=== PATIENT | male | born 1980 | race Caucasian/White ===

== ENCOUNTER 2024-04-17 06:55 | Day surgery (SDC) | payer BC ==
[2024-04-17] MEDS ORDERED: Midazolam 1 MG/ML 2 ML SDV IV ONE (06:56)
[2024-04-17] MEDS ORDERED: fentaNYL 100 MCG/2 ML SDV IV ONE (06:56)
[2024-04-17] MEDS ORDERED: Propofol 200 MG/20 ML SDV IV ONE (06:56)
[2024-04-17] MEDS ORDERED: Sodium Chloride 0.9% 10 ML Syringe FLUSH PRN (07:00)
[2024-04-17] MEDS: Lactated Ringers 1,000 ML IV SCH (07:56)
[2024-04-17] MEDS: Simethicone Drops 40 MG/0.6 ML 30 ML Bottle ONE (08:26)
== END 2024-04-17 09:20 | disposition home or self-care (01) ==
LOC: FB.SDS 06:55
PROVIDERS: ATTEND Surgery
DX: Z12.11 Encounter for screening for malignant neoplasm of colon (principal); K21.9 Gastro-esophageal reflux disease without esophagitis; I10 Essential (primary) hypertension; Z87.891 Personal history of nicotine dependence
CPT/HCPCS: 00812; A9270-GY; J2250; J2704; J3010; J7120